=== PATIENT | female | born 1960 | race Caucasian/White ===

== ENCOUNTER → 2017-05-25 | Outpatient (CLI) | payer OTHER ==
[2016-07-30 09:09] VITALS: BP 116/60
--- NOTE | 2017-05-26 17:10 | MG ---
Examination: Bilateral screening mammogram. Clinical history: Routine screening. Technique: Digital CC and MLO views of both breasts were obtained. Computer aided detection analysis was performed and used during the interpretation. Comparison: 04/21/2016, 04/17/2015. Findings: The breasts are composed of scattered fibroglandular densities. Benign-appearing calcifications are n oted in the breasts bilaterally. A skin mole is present overlying the right breast. There are 2 small oval densities present in the upper outer aspect of the left breast, possibly repre senting small intramammary lymph nodes. Additional imaging evaluation is recommended, with spot compr ession magnification views in the CC and MLO projections, a lateral view of the left breast and a lef t breast ultrasound. No suspicious mass, area of architectural distortion or suspicious cluster of microcalcifications is noted in the right breast. Impression: 1. Densities in the left breast, as described above. BI-RADS category 0 (ZERO) - ASSESSMENT INCOMPLETE; ADDITIONAL IMAGING IS NEEDED. Recommend immediate recall for additional imaging evaluation, as described above. Diagnostic CAD was utilized and reviewed. * 0 (ZERO) - ASSESSMENT INCOMPLETE; ADDITIONAL IMAGING IS NEEDED. * 0C - ASSESSMENT INCOMPLETE, NEEDS ADDITIONAL IMAGING EVALUATION AND/OR PRIOR MAMMOGRAMS FOR COMPARI SON. * 1/1 (ONE) - NEGATIVE. * 2/II (TWO) - BENIGN FINDINGS. * 3/III (THREE) - PROBABLY BENIGN FINDING; SHORT INTERVAL FOLLOW-UP SUGGESTED. * 4/IV (FOUR) - SUSPICIOUS ABNORMALITY; BIOPSY SHOULD BE CONSIDERED. * 5/V - HIGHLY SUSPICIOUS OF MALIGNANCY; BIOPSY SHOULD BE PERFORMED. * 6/IV - KNOWN BIOPSY PROVEN MALIGNANCY-APPROPRIATE ACTION SHOULD BE TAKEN. A NEGATIVE X-RAY REPORT SHOULD NOT DELAY BIOPSY IF A DOMINANT OR CLINICALLY SUSPICIOUS MASS IS PRESENT; 4 TO 8 PERCENT OF CANCERS ARE NOT IDENTIFIED BY X-RAY. A NEGATIVE REPORT MAY REINFORCE THE CLINICAL IMPRESSION. ADENOSIS AND DENSE BREASTS MAY OBSCURE AN UNDERLYING NEOPLASM. Reported By:
== END ==
LOC: RAD 15:05
PROVIDERS: ATTEND Internal Medicine
DX: Z12.31 Encounter for screening mammogram for malignant neoplasm of breast (principal); R92.8 Other abnormal and inconclusive findings on diagnostic imaging of breast
CPT/HCPCS: 77067

== ENCOUNTER → 2017-06-24 | Outpatient (CLI) | payer OTHER ==
[2016-07-30 09:09] VITALS: BP 116/60
--- NOTE | 2017-06-24 15:39 | MG ---
Examination: Unilateral left diagnostic mammogram and left breast ultrasound. Clinical history: Abnormal screening mammogram. Technique: Additional digital images of the left breast were obtained. Targeted left breast ultrasoun d was also obtained evaluating the upper outer aspect of the left breast. Comparison: 05/25/2017, 04/21/2016. Findings: The left breast is composed of scattered fibroglandular densities. Benign-appearing calcifications ar e noted in the left breast. Two small oval densities present in the upper outer aspect of the left breast on the recent screening mammogram, appear to efface on additional views and were probably due to summation artifact from nor mal fibroglandular tissue. Targeted left breast ultrasound evaluating the upper outer aspect of the left breast reveals a 6 mm c ircumscribed oval anechoic mass present at the 1 o'clock position, consistent with a benign cyst. No suspicious cystic or solid mass is noted. Impression: 1. No mammographic or sonographic evidence of malignancy. BI-RADS category 2-benign findings. Recommend routine annual screening mammogram. Diagnostic CAD was utilized and reviewed. * 0 (ZERO) - ASSESSMENT INCOMPLETE; ADDITIONAL IMAGING IS NEEDED. * 0C - ASSESSMENT INCOMPLETE, NEEDS ADDITIONAL IMAGING EVALUATION AND/OR PRIOR MAMMOGRAMS FOR COMPARI SON. * 1/1 (ONE) - NEGATIVE. * 2/II (TWO) - BENIGN FINDINGS. * 3/III (THREE) - PROBABLY BENIGN FINDING; SHORT INTERVAL FOLLOW-UP SUGGESTED. * 4/IV (FOUR) - SUSPICIOUS ABNORMALITY; BIOPSY SHOULD BE CONSIDERED. * 5/V - HIGHLY SUSPICIOUS OF MALIGNANCY; BIOPSY SHOULD BE PERFORMED. * 6/IV - KNOWN BIOPSY PROVEN MALIGNANCY-APPROPRIATE ACTION SHOULD BE TAKEN. A NEGATIVE X-RAY REPORT SHOULD NOT DELAY BIOPSY IF A DOMINANT OR CLINICALLY SUSPICIOUS MASS IS PRESENT; 4 TO 8 PERCENT OF CANCERS ARE NOT IDENTIFIED BY X-RAY. A NEGATIVE REPORT MAY REINFORCE THE CLINICAL IMPRESSION. ADENOSIS AND DENSE BREASTS MAY OBSCURE AN UNDERLYING NEOPLASM. Reported By:
== END ==
LOC: RAD 13:48
PROVIDERS: ATTEND Internal Medicine
DX: N64.59 Other signs and symptoms in breast (principal)
CPT/HCPCS: 76642; 77065